=== PATIENT | male | born 1955 | race Caucasian/White ===

== ENCOUNTER 2019-10-19 11:26 | Day surgery (SDC) | payer OTHER ==
[2019-10-18 10:58] LABS: HEMATOCRIT 39.4 % (37.9-51.0); HEMOGLOBIN 14.1 g/dL (13.5-17.0); MEAN CORPUSCULAR HEMOGLOBIN 31.4 pg (27.0-33.4); MEAN CORPUSCULAR HGB CONC 35.7 g/dL (32.0-36.0); MEAN CORPUSCULAR VOLUME 88 fl (80-97); PLATELET COUNT 144 10^3/uL (150-450); RED BLOOD COUNT 4.49 10^6/uL (4.35-5.55); RED CELL DISTRIBUTION WIDTH 13.6 % (11.5-14.0)
[~2019-10-19 11:26] MED LIST: CEFAZOLIN 1 GM/D5W RTU 1 GM/50 ML RTUPB IV PRN; CEFAZOLIN SODIUM 1 GM in DEXTROSE 5%-WATER 50 ML IV PRN; LACTATED RINGERS 1000 ML IV PRN; LIDOCAINE 0.5% INJ-PF (5 MG/ML) 50 ML SDV SUBCUT PRN
[2019-10-19] MEDS ORDERED: ONDANSETRON HCL INJ/PF 4 MG/2 ML SDV IV PRN (14:37)
[2019-10-19] MEDS ORDERED: MEPERIDINE HCL/PF INJ 25 MG/1 ML DISP.SYRIN IV PRN (14:37)
[2019-10-19] MEDS ORDERED: MORPHINE SULFATE 10 MG/ML INJ IV PRN (14:37)
[2019-10-19] MEDS ORDERED: FENTANYL CITRATE INJ/PF 100 MCG/2 ML AMPUL IV PRN ×3 (14:37)
[2019-10-19] MEDS ORDERED: DIPHENHYDRAMINE HCL 50 MG/ML VIAL IV PRN (14:37)
[2019-10-19] MEDS ORDERED: OXYCODONE-ACETAMINOPHEN 5-325 MG TABLET PO PRN ×2 (14:37)
[2019-10-19] MEDS ORDERED: ONDANSETRON HCL INJ/PF 4 MG/2 ML SDV ONE (15:08)
[2019-10-19] MEDS ORDERED: LIDOCAINE 1%/EPINEPHRINE INJ 20 ML VIAL ONE (15:08)
[2019-10-19] MEDS ORDERED: METHYLENE BLUE 50 MG/10 ML AMPULE ONE (15:08)
[2019-10-19] MEDS ORDERED: MIDAZOLAM 2 MG/2 ML INJ ONE (15:08)
[2019-10-19] MEDS ORDERED: KETOROLAC TROMETHAMINE 60 MG/2 ML SDV ONE (15:08)
[2019-10-19] MEDS ORDERED: DEXAMETHASONE SOD PHOSPHATE INJ 4 MG/1 ML VIAL ONE (15:08)
[2019-10-19] MEDS ORDERED: FENTANYL CITRATE INJ/PF 100 MCG/2 ML AMPUL ONE (15:08)
[2019-10-19] MEDS ORDERED: MICROFIBRILLAR COLLAGEN 1 GM PACK ONE (15:08)
[2019-10-19] MEDS ORDERED: PROPOFOL INJ 200 MG/20 ML VIAL IV ONE (15:09)
--- NOTE | 2019-10-19 16:04 | Discharge Summary ---
Discharge Summary (SDC) - Discharge Final Diagnosis: Diffusely lymphadenopathy Date of Surgery: 10/19/19 Discharge Date: 10/19/19 Condition: Good Treatment or Instructions: Resume preoperative medications, diet, activity. No heavy lifting. May take Tylenol or Motrin as needed pain. Return to [facility] in 1 to 2 weeks for follow-up appointment. Referrals: MIKE HUIZAR MD [Primary Care Provider] - Discharge Diet: As Tolerated Discharge Activity: Activity As Tolerated Home Care Assistance: None Needed Report the Following to Your Physician Immediately: Shortness of Breath, Increase in Pain, Fever over 101 Degrees
--- NOTE | 2019-10-19 16:08 | Operative Report ---
Operative Report DATE OF SURGERY: 10/19/19 PREOPERATIVE DIAGNOSIS: Diffuse lymphadenopathy, status post core biopsy of left axilla POSTOPERATIVE DIAGNOSIS: Same OPERATION: Ultrasound directed open left axillary excisional biopsy SURGEON: DOMONIQUE NEAL ANESTHESIA: LMAC TISSUE REMOVED OR ALTERED: Left axillary lymph nodes x2 COMPLICATIONS: None ESTIMATED BLOOD LOSS: Scant INTRAOPERATIVE FINDINGS: See below PROCEDURE: Patient was seen in the preop holding area the left axilla was marked. The patient was then taken to the main operating room where LMAC anesthesia was induced. Left arm was abducted, left axilla prepped draped sterile fashion. Surgical plan surgical timeout were conducted. Using ultrasound as a guide, the lymphadenopathy of the left axilla was identified. Skin was anesthetized 1% plain lidocaine along the chest wall. A 2 and half centimeter incision was made with a #10 blade, and using ultrasound as a guide, a generous lymph node, likely associated with a smaller lymph node, was removed from the low axilla using electrocautery dissection. The lymph nodes we re sent fresh to pathology with the relevant clinical history. We checked the axilla for any bleeding there was none. The cavity was dry. Wound closed with multiple 3-0 interrupted Vicryl sutures, benzoin and Steri- Strips. Patient tolerated procedure well, taken to ther recovery roomin stable condition.
[2019-10-19 17:39] VITALS: BP 102/72
== END 2019-10-19 17:35 | disposition home or self-care (01) ==
LOC: OROUT 11:26
PROVIDERS: ATTEND Surgery
DX: R59.1 Generalized enlarged lymph nodes (principal); Z88.8 Allergy status to other drugs, medicaments and biological substances; Z87.891 Personal history of nicotine dependence; Z79.899 Other long term (current) drug therapy
CPT/HCPCS: 36415; 88185 ×15; 88184; 85027; 88233; 88262; 88305 ×2; 01610; 38500; J2250; J0690; J1100; J1885; J3010; J3490; J2405; J7060; J2704; Q9968; 1610

== ENCOUNTER → 2019-11-10 | Outpatient (CLI) | payer OTHER ==
--- NOTE | 2019-11-10 14:36 | RADIOLOGY REPORT (SQ) ---
EXAM DESCRIPTION: NM MUGA REST COMPLETED DATE/TIME: 11/10/2019 1:41 pm REASON FOR STUDY: (Z08)ENCNTR FOR FOLLOW-UP EXAM AFTER TRTMT FOR MALIGNANT NEOPLASM Z08 ENCNTR FOR FOLLOW-UP EXAM AFTER TRTMT FOR MALIGNANT NEOP COMPARISON: None. RADIONUCLIDE AND DOSE: 25 mCi technetium 99m labeled red blood cells The route of agent administration: Intravenous TECHNIQUE: Following administration of the radionuclide, gated images of the heart are obtained in t hree projections. Left ventricular functional analysis performed. LIMITATIONS: None. FINDINGS: LEFT VENTRICULAR FUNCTION: EJECTION FRACTION: 70%. END-DIASTOLIC VOLUME: 111 mL. END-SYSTOLIC VOLUME: 29 mL. WALL MOTION: No focal wall motion abnormalities. OTHER: No other significant finding. IMPRESSION: NORMAL CARDIAC MUGA STUDY. NORMAL LEFT VENTRICULAR FUNCTION WITH VALUES ABOVE. TECHNICAL DOCUMENTATION: JOB ID: [id number] [employer]- All Rights Reserved Reading location - IP/workstation name: [email or web address]
== END ==
LOC: RAD 12:22
PROVIDERS: ATTEND Internal Medicine Hematology & Oncology
DX: Z13.6 Encounter for screening for cardiovascular disorders (principal); Z08 Encounter for follow-up examination after completed treatment for malignant neoplasm
CPT/HCPCS: 78472; A9560; Q9969

== ENCOUNTER 2019-11-14 06:28 | Day surgery (SDC) | payer OTHER ==
[~2019-11-14 06:28] MED LIST changes: +ACETAMINOPHEN 325 MG TABLET PO PRN; -CEFAZOLIN SODIUM 1 GM in DEXTROSE 5%-WATER 50 ML IV PRN; -LACTATED RINGERS 1000 ML IV PRN; -LIDOCAINE 0.5% INJ-PF (5 MG/ML) 50 ML SDV SUBCUT PRN
[2019-11-14 07:47] LABS: HEMATOCRIT 40.4 % (37.9-51.0); HEMOGLOBIN 14.4 g/dL (13.5-17.0); MEAN CORPUSCULAR HEMOGLOBIN 31.2 pg (27.0-33.4); MEAN CORPUSCULAR HGB CONC 35.6 g/dL (32.0-36.0); MEAN CORPUSCULAR VOLUME 88 fl (80-97); PLATELET COUNT 151 10^3/uL (150-450); RED CELL DISTRIBUTION WIDTH 13.5 % (11.5-14.0); WHITE BLOOD COUNT 7.1 10^3/uL (4.0-10.5)
[2019-11-14] MEDS ORDERED: LIDOCAINE 0.5% INJ-PF (5 MG/ML) 50 ML SDV ONE (08:06)
[2019-11-14] MEDS ORDERED: MIDAZOLAM 2 MG/2 ML INJ ONE ×2 (08:10→08:56)
[2019-11-14] MEDS ORDERED: BACITRACIN INJ 50,000 UNIT VIAL ONE (08:11)
[2019-11-14] MEDS ORDERED: FENTANYL CITRATE INJ/PF 100 MCG/2 ML AMPUL ONE (08:11)
[2019-11-14] MEDS ORDERED: CEFAZOLIN INJ 1 GM VIAL ONE (08:26)
--- NOTE | 2019-11-14 09:29 | Discharge Summary ---
Discharge Summary (SDC) - Discharge Final Diagnosis: Lymphoma Date of Surgery: 11/14/19 Discharge Date: 11/14/19 Condition: Good Treatment or Instructions: Return to [facility] in 1 to 2 weeks; allow Steri-Strips to fall off; take Tylenol Motrin PRN pain. May shower in 48 hours Referrals: MIKE HUIZAR MD [Primary Care Provider] - Discharge Diet: As Tolerated Discharge Activity: Activity As Tolerated Home Care Assistance: None Needed Report the Following to Your Physician Immediately: Shortness of Breath, Increase in Pain, Fever over 101 Degrees
--- NOTE | 2019-11-14 09:38 | Operative Report ---
Operative Report DATE OF SURGERY: 11/14/19 PREOPERATIVE DIAGNOSIS: 1. Lymphoma. 2. Status post left axillary node biopsy POSTOPERATIVE DIAGNOSIS: Same OPERATION: 1. Focused ultrasound of the neck with ultrasound guided insertion of single-lumen Fldmfm-y-Sikb catheter right subclavian position. 2. Interpretation of intraoperative fluoroscopy SURGEON: DOMONIQUE CAVAZOS RECREATION SPECIALIST: None ANESTHESIA: Moderate Sedation TISSUE REMOVED OR ALTERED: None COMPLICATIONS: None ESTIMATED BLOOD LOSS: Scant INTRAOPERATIVE FINDINGS: See below PROCEDURE: The patient was taken from the ambulatory surgery area to the cardiac catheterization lab where he is placed supine position arms tucked, right neck and chest wall prepped and draped with chlorhexidine. Surgical plan surgical timeout were conducted. Ultrasound guidance was performed of the right neck, identifying the internal jugular vein which is felt to be suitable for cannulation. Skin was anesthetized with 1% lidocaine plain. A noe was made the skin with 11 blade, and a micro needle and wire were threaded under ultrasound guidance of the right internal jugular vein. A site suitable for placement of the port was chosen in the right subclavian position. Skin was anesthetized 1% plain lidocaine. A 3 cm incision was made with a #15 blade, and a port pocket developed large enough to accommodate a single-chamber port. This was performed with blunt dissection and electrocautery. The catheter was then tunneled between the 2 incisions using the metallic tunneler, trimmed to the appropriate length, attached to the port with the plastic ring. Under ultrasound guidance and fluoroscopically monitoring, the micro wire was threaded over to a conventional 0.030 guidewire, then a 8-1/2 Liberian dilator and introducer sheath were threaded over the guidewire. The dilator was removed, and the catheter was threaded into the strip away sheath under fluoroscopic guidance. The strip away sheath was removed leaving the catheter good position with no evidence of ectopy. There was no kinking of the catheter at the neck. We aspirated the chamber with Rivero needle, and the port aspirated and flushed satisfactorily with a dilute heparin. The wound was stable. Both wounds were closed with 3-0 Vicryl benzoin and Steri-Strips. Patient tolerated procedure well, taken back to the ambulatory surgery unit in stable condition.
--- NOTE | 2019-11-14 09:44 | RADIOLOGY REPORT (SQ) ---
EXAM DESCRIPTION: PORTACATH INSERTION COMPLETED DATE/TIME: 11/14/2019 9:11 am REASON FOR STUDY: R59.1 ADENOPATHY R59.1 GENERALIZED ENLARGED LYMPH NODES COMPARISON: None. FLUOROSCOPY TIME: Less than 1 second Cine images saved to PACS. TECHNIQUE: Intra-operative images acquired during surgical procedure to evaluate progress. NUMBER OF IMAGES: 12 LIMITATIONS: None. FINDINGS: Fluoroscopy was provided for intraoperative procedure. Please refer to the operative repo rt for further discussion IMPRESSION: IMAGE(S) OBTAINED DURING PROCEDURE. COMMENT: Quality ID [id number]: Final reports for procedures using fluoroscopy that document radiation exp osure indices, or exposure time and number of fluorographic images (if radiation exposure indices are not available) Please consult full operative report of the attending physician for description of the procedure. TECHNICAL DOCUMENTATION: JOB ID: [id number] [employer]- All Rights Reserved Reading location - IP/workstation name: [email or web address]
[2019-11-14 11:20] VITALS: BP 117/69
== END 2019-11-14 10:45 | disposition home or self-care (01) ==
LOC: CCL 06:28
PROVIDERS: ATTEND Surgery
DX: C85.91 Non-Hodgkin lymphoma, unspecified, lymph nodes of head, face, and neck (principal); R59.1 Generalized enlarged lymph nodes; Z88.5 Allergy status to narcotic agent; Z87.891 Personal history of nicotine dependence; Z79.899 Other long term (current) drug therapy
CPT/HCPCS: 36415; 85027; 36561; 76937; 77001; C1752; C1788; J2250; J3490 ×2; J0690; J3010; J1644

== ENCOUNTER → 2020-02-20 | Outpatient (CLI) | payer MEDICARE, OTHER ==
--- NOTE | 2020-02-20 09:38 | RADIOLOGY REPORT (SQ) ---
EXAM DESCRIPTION: CT CHEST WITH IMAGES COMPLETED DATE/TIME: 02/20/2020 9:14 am REASON FOR STUDY: C83.18 MANTLE CELL LYMPHOMA, LYMPH NODES OF MULTIPLE SITES C83.18 MANTLE CELL LYM PHOMA, LYMPH NODES OF MULTIPLE SITES COMPARISON: PET 10/18/2019 TECHNIQUE: CT scan of the chest performed using helical scanning technique with dynamic intravenous contrast injection. Images reviewed with lung, soft tissue and bone windows. Reconstructed coronal and sagittal MPR and MIP images reviewed. All images stored on PACS. All CT scanners at this facility use dose modulation, iterative reconstruction, and/or weight based d osing when appropriate to reduce radiation dose to as low as reasonably achievable (ALARA). [facility]: Dose Right [facility]: CareDose [facility]: Dose Right [facility]: Teradose 4D [facility]: Compumatrix CONTRAST TYPE AND DOSE: See abdomen RENAL FUNCTION: Creatinine 0.7 RADIATION DOSE: CT Rad equipment meets quality standard of care and radiation dose reduction techniq ues were employed. CTDIvol: 9.0 - 12.1 mGy. DLP: 1772 mGy-cm. . LIMITATIONS: None. FINDINGS: LUNGS AND PLEURA: New irregular area of ground-glass attenuation within the right apex com pared to prior exam. No additional focal airspace disease. No pleural effusion or pneumothorax. No discrete solid pulmonary parenchymal nodules or masses. HILAR AND MEDIASTINAL STRUCTURES: Previously seen mediastinal and hilar lymph nodes have decreased in size. For reference, previously described 19 mm right hilar nodule is no longer visualized. Decrea sed bilateral axillary adenopathy. Previously referenced 19 mm short axis left axillary node now ani sures 7 mm in short axis. No new discrete adenopathy. HEART AND VASCULAR STRUCTURES: No aneurysm or dissection. No central pulmonary emboli. No pericardi al effusion. HARDWARE: Right-sided chest port with catheter tip at cavoatrial junction. UPPER ABDOMEN: See separate report of the CT of the abdomen. THYROID AND OTHER SOFT TISSUES: No masses. No adenopathy. BONES: No acute bony abnormality. No discrete lytic or blastic osseous lesions. OTHER: No other significant finding. IMPRESSION: 1. Resolution of previously described mediastinal, axillary and hilar adenopathy. No n ew discrete intrathoracic disease. 2. No other evidence of acute intrathoracic process. TECHNICAL DOCUMENTATION: JOB ID: [id number] Quality ID # [id number]: Final reports with documentation of one or more dose reduction techniques (e.g., Au tomated exposure control, adjustment of the mA and/or kV according to patient size, use of iterative reconstruction technique) 2010 [employer]- All Rights Reserved Reading location - IP/workstation name: [email or web address]
--- NOTE | 2020-02-20 10:06 | RADIOLOGY REPORT (SQ) ---
EXAM DESCRIPTION: CT ABD/PELVIS WITH IV ONLY IMAGES COMPLETED DATE/TIME: 02/20/2020 9:14 am REASON FOR STUDY: C83.18 MANTLE CELL LYMPHOMA, LYMPH NODES OF MULTIPLE SITES C83.18 MANTLE CELL LYM PHOMA, LYMPH NODES OF MULTIPLE SITES COMPARISON: PET 10/18/2019 TECHNIQUE: CT scan of the abdomen and pelvis performed using helical scanning technique with dynamic intravenous contrast injection. No oral contrast. Images reviewed with lung, soft tissue, and bone windows. Reconstructed coronal and sagittal MPR images reviewed. Delayed images for evaluation of the urinary system also acquired. All images stored on PACS. All CT scanners at this facility use dose modulation, iterative reconstruction, and/or weight based d osing when appropriate to reduce radiation dose to as low as reasonably achievable (ALARA). [facility]: Dose Right [facility]: CareDose [facility]: Dose Right [facility]: Teradose 4D [facility]: Performance Indicator CONTRAST TYPE AND DOSE: contrast/concentration: Isovue 350.00 mg/ml; Total Contrast Delivered: 100.0 ml; Total Saline Delivered: 72.0 ml RENAL FUNCTION: Creatinine 0.7 RADIATION DOSE: . LIMITATIONS: None. FINDINGS: LOWER CHEST: See separate report of the CT of the chest. LIVER: Normal size. No masses. No dilated ducts. SPLEEN: Normal size. No focal lesions. PANCREAS: No masses. No significant calcifications. No adjacent inflammation or peripancreatic fluid collections. Pancreatic duct not dilated. GALLBLADDER: No identified stones by CT criteria. No inflammatory changes to suggest cholecystitis. ADRENAL GLANDS: Stable 21 mm right adrenal low-density nodule compatible with adenoma. RIGHT KIDNEY AND URETER: No solid masses. No significant calcifications. No hydronephrosis or hyd roureter. LEFT KIDNEY AND URETER: No solid masses. No significant calcifications. No hydronephrosis or hydr oureter. AORTA AND VESSELS: No aneurysm. No dissection. Renal arteries, SMA, celiac without stenosis. RETROPERITONEUM: Previously seen retroperitoneal, portal caval and iliac chain adenopathy has decreas ed. Previously referenced right pelvic sidewall node measuring 17 mm in short axis now measures 8 mm (series 3, image 75). Decreased inguinal adenopathy. Persistent prominent right inguinal node sherlyn uring 15 mm in short axis, previously 16 mm (series 3, image 102). BOWEL AND PERITONEAL CAVITY: No focal bowel wall thickening. No evidence of intestinal obstruction. APPENDIX: Normal. PELVIS: No mass. No free fluid. Normal bladder. ABDOMINAL WALL: No masses. No hernias. BONES: No acute bony abnormality. No suspicious lytic or blastic osseous lesions. Lower lumbar face t arthropathy. OTHER: No other significant finding. IMPRESSION: 1. Near complete resolution of previously seen portacaval, retroperitoneal and pelvic a denopathy as above. Residual prominent right iliac chain node measuring 15 mm in short axis, nonspec ific. 2. No evidence of new disease within the abdomen or pelvis. TECHNICAL DOCUMENTATION: JOB ID: [id number] Quality ID # [id number]: Final reports with documentation of one or more dose reduction techniques (e.g., Au tomated exposure control, adjustment of the mA and/or kV according to patient size, use of iterative reconstruction technique) 2010 [employer]- All Rights Reserved Reading location - IP/workstation name: [email or web address]
== END ==
LOC: RAD 08:45
PROVIDERS: ATTEND Internal Medicine
DX: C83.18 Mantle cell lymphoma, lymph nodes of multiple sites (principal)
CPT/HCPCS: 71260; 74177

== ENCOUNTER → 2020-05-22 | Outpatient (CLI) | payer MEDICARE, OTHER ==
--- NOTE | 2020-05-23 08:51 | RADIOLOGY REPORT (SQ) ---
EXAM DESCRIPTION: PET CT SKULL/THIGH IMAGES COMPLETED DATE/TIME: 05/22/2020 10:29 am REASON FOR STUDY: LYMPHOMA (C83.18) C83.18 MANTLE CELL LYMPHOMA, LYMPH NODES OF MULTIPLE SITES COMPARISON: Prior PET-CT dated 10/18/2019 RADIONUCLIDE AND DOSE: 12.63 mCi F18 FDG The route of agent administration: Intravenous FASTING BLOOD SUGAR: 110 mg/dl CONTRAST TYPE AND DOSE: No CT contrast given. TECHNIQUE: Blood glucose level was verified. Above dose of FDG was injected intravenously. 2-D seg mented attenuation correction images were obtained from the base of the skull to the midthighs. Nonc ontrast CT images were obtained for attenuation correction and fusion with emission images. CT image s were performed without oral or intravenous contrast and are not sensitive for parenchymal lesions. A series of overlapping emission PET images were obtained. Images reviewed and manipulated at [facility] work station by the radiologist. Images stored on PACS. LIMITATIONS: None. FINDINGS: HEAD AND NECK: No areas of abnormal metabolic activity in the soft tissues of the head and neck. CHEST: No areas of abnormal metabolic activity in the chest. ABDOMEN AND PELVIS: No areas of abnormal metabolic activity in the abdomen or pelvis. Expected physi ologic activity is present in the genitourinary system and bowel. PROXIMAL LOWER EXTREMITIES: No areas of abnormal metabolic activity in the soft tissues of the lower extremities. BONES: No abnormal metabolic activity in the visualized skeleton. ADDITIONAL CT FINDINGS: Previously described extensive cervical, mediastinal, axillary and peritoneal in retroperitoneal adenopathy has largely resolved. OTHER: No other significant findings. IMPRESSION: No abnormal metabolic activity on today's study consistent with response to therapy. Th e extensive adenopathy previously described has essentially resolved. There are a few small residual axillary nodes but no abnormal metabolic activity. TECHNICAL DOCUMENTATION: JOB ID: [id number] 2010 [employer]- All Rights Reserved Reading location - IP/workstation name: [email or web address]
== END ==
LOC: RAD 07:35
PROVIDERS: ATTEND Internal Medicine Hematology & Oncology
DX: Z51.11 Encounter for antineoplastic chemotherapy (principal); C83.18 Mantle cell lymphoma, lymph nodes of multiple sites
CPT/HCPCS: 78815; A9552; J1642